=== PATIENT | male | born 1950 | race Caucasian/White ===

== ENCOUNTER 2021-08-02 15:31 | Day surgery (SDC) | payer MEDICARE, OTHER, SELFPAY ==
[2021-07-28 12:17] VITALS: BMI 22.5
--- NOTE | 2021-08-02 17:44 | PM.PREOP ---
Pre-operative Note Interval Note History & Physical reviewed/Exam performed by Physician: Yes Changes to H&P: No H&P completed within 30 days and has changed as indicated here:: Patient chose not to wait for an operation and canceled.
== END 2021-08-02 15:35 | disposition home or self-care (01) ==
PROVIDERS: PCP Internal Medicine; Referring Provider Specialist; Visit Provider Specialist